=== PATIENT | female | born 1990 | race Caucasian/White ===

== ENCOUNTER 2017-11-04 19:33 | Emergency (ER) | payer OTHER, SELFPAY ==
[2017-11-04 19:47] VITALS: BP 127/87; PULSE 98; O2SAT 95
--- NOTE | 2017-11-04 19:52 | ERPHSYRPT ---
- History of Present Illness Time Seen by Provider: 11/04/17 19:49 Source: patient Exam Limitations: no limitations Patient Subjective Stated Complaint: pt is alert and oriented. pt is ambulatory. pt states that she fell on her wooden porch and scraped her left harley and has a 2cm laceration on her left foot. pedal pulses are equal and strong. laceration is actively bleeding a minimal amound. Triage Nursing Assessment: see above Physician History: 27-year-old white female arrives with complaint of abrasion to her left foot symptoms since just prior to arrival. According to the patient she fell down some stairs she has an abrasion to her left foot, She denies any other complaints, Past medical history is negative. Past surgical history is negative. Patient's immunizations updated last month. Timing/Duration: today Severity: mild Modifying Factors: Improves With: nothing Associated Symptoms: other (abrasion left foot), No nausea, No vomiting, No abdominal pain, No shortness of breath, No heartburn, No diaphoresis, No cough, No chills, No chest pain, No fever, No headaches, No malaise, No rash, No syncope, No seizure, No weakness Allergies/Adverse Reactions: No Known Drug Allergies Allergy (Unverified 12/18/13 15:05) Home Medications: Vits W-Ca,Fe,FA(<1Mg) [] 1 tab PO DAILY 12/18/13 [History] Hx Tetanus, Diphtheria Vaccination/Date Given: Yes Hx Influenza Vaccination/Date Given: No Hx Pneumococcal Vaccination/Date Given: No Immunizations Up to Date: Yes - Review of Systems Constitutional: No Fever, No Chills Eyes: No Symptoms Ears, Nose, & Throat: No Symptoms Respiratory: No Cough, No Dyspnea Cardiac: No Chest Pain, No Edema, No Syncope Abdominal/Gastrointestinal: No Abdominal Pain, No Nausea, No Vomiting, No Diarrhea Genitourinary Symptoms: No Dysuria Musculoskeletal: No Back Pain, No Neck Pain Skin: Other (Abrasion left foot bleeds when she stands up) Neurological: No Dizziness, No Focal Weakness, No Sensory Changes Psychological: No Symptoms Endocrine: No Symptoms All Other Systems: Reviewed and Negative - Past Medical History Pertinent Past Medical History: No Neurological History: Seizures ENT History: No Pertinent History Cardiac History: No Pertinent History Respiratory History: No Pertinent History Endocrine Medical History: No Pertinent History Musculoskeletal History: No Pertinent History GI Medical History: No Pertinent History History: No Pertinent History Psycho-Social History: No Pertinent History Female Reproductive Disorders: No Pertinent History Other Medical History: pediatric seizures. - Past Surgical History Past Surgical History: Yes Neuro Surgical History: No Pertinent History Cardiac: No Pertinent History Respiratory: No Pertinent History Gastrointestinal: No Pertinent History Genitourinary: No Pertinent History Musculoskeletal: No Pertinent History Female Surgical History: No Pertinent History Other Surgical History: TONSILS - Social History Smoking Status: Never smoker Exposure to second hand smoke: No Drug Use: none Patient Lives Alone: No - Female History Hx Now: No - Nursing Vital Signs Nursing Vital Signs: Initial Vital Signs Temperature 97.7 F 11/04/17 19:33 Pulse Rate 98 H 11/04/17 19:33 Respiratory Rate 16 11/04/17 19:33 Blood Pressure 127/87 11/04/17 19:33 O2 Sat by Pulse Oximetry 95 11/04/17 19:33 Pain Scale Pain Intensity 0 - Physical Exam General Appearance: no apparent distress, alert Eye Exam: PERRL/EOMI, eyes nml inspection Ears, Nose, Throat Exam: normal ENT inspection, TMs normal, pharynx normal, moist mucous membranes Neck Exam: normal inspection, non-tender, supple, full range of motion Respiratory Exam: normal breath sounds, lungs clear, No respiratory distress Cardiovascular Exam: regular rate/rhythm, normal heart sounds, normal peripheral pulses Gastrointestinal/Abdomen Exam: soft, normal bowel sounds, No tenderness, No mass Back Exam: normal inspection Extremity Exam: normal inspection, normal range of motion, pelvis stable Neurologic Exam: alert, oriented x 3, cooperative, 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 Will have nurse clean the area and apply bacitracin. 11/04/17 20:27 - Departure Time of Disposition: 20:25 Departure Disposition: Home Clinical Impression: Skin abrasion Condition: Fair Critical Care Time: No Referrals: LARRY CARY FNP [Primary Care Provider] - Additional Instructions: Return home. Bacitracin to area until healed. Ice and elevate and pressure if any further bleeding. Return for acute distress or for severe symptoms.
[2017-11-04] MEDS ORDERED: BACIGUENT PACKET TP ONE (20:26)
[2017-11-04] MEDS ORDERED: BACIGUENT PACKET ONE (20:35)
== END 2017-11-04 21:07 | disposition home or self-care (01) ==
LOC: ED 19:33
DX: S90.812A Abrasion, left foot, initial encounter (principal); W10.9XXA Fall (on) (from) unspecified stairs and steps, initial encounter; Y92.008 Other place in unspecified non-institutional (private) residence as the place of occurrence of the external cause
CPT/HCPCS: 99283; A9270-GY

== ENCOUNTER 2018-08-05 15:45 | Emergency (ER) | payer OTHER ==
--- NOTE | 2018-08-05 16:30 | ERPHSYRPT ---
- History of Present Illness Time Seen by Provider: 08/05/18 16:17 Source: patient Exam Limitations: no limitations Patient Subjective Stated Complaint: states had two molars removed and started on amoxicillin same day. last night had a couple episodes of vomiting and vomited times one today. also having increased swelling to left side of face. states she can feel a blister on left side of mouth. Triage Nursing Assessment: ambulated to room per self. skin w/d, color normal, resp easy. slight swelling noted to left side of face. denies pain Physician History: 28-year-old white female who has a history of seizures as a child last time at 13 years old arrives with complaints of vomiting 3 since yesterday, She states that she has swelling in her left maxillary region, Patient states that she had 2 teeth pulled in the left maxillary area on , August 03, She states that she is tender in the left maxillary area she has no fevers, She does feel like she is not eating well, Past medical history includes pediatrics seizures Past surgical history includes tonsillectomy. Timing/Duration: day(s) (2 days) Severity: moderate Modifying Factors: Improves With: other (patient is on amoxicillin) Associated Symptoms: nausea, vomiting, other (swelling left maxillary area), No abdominal pain, No shortness of breath, No heartburn, No diaphoresis, No cough, No chills, No chest pain, No fever, No headaches, No loss of appetite, No malaise, No rash, No syncope, No seizure, No weakness Allergies/Adverse Reactions: No Known Drug Allergies Allergy (Verified 08/05/18 16:07) Hx Tetanus, Diphtheria Vaccination/Date Given: Yes Hx Influenza Vaccination/Date Given: Yes Hx Pneumococcal Vaccination/Date Given: No - Review of Systems Constitutional: No Fever, No Chills Eyes: No Symptoms Ears, Nose, & Throat: Mouth Pain, Mouth Swelling, No Ear Pain, No Ear Discharge , No Hearing Changes, No Tinnitus, No Nose Pain, No Nose Congestion, No Nose Discharge, No Sinus Drainage, No Epistaxis, No Loose Teeth, No Throat Pain, No Throat Swelling, No Hoarse, No Painful Swallowing, No Snoring, No Stridor Respiratory: No Cough, No Dyspnea Cardiac: No Chest Pain, No Edema, No Syncope Abdominal/Gastrointestinal: No Abdominal Pain, No Nausea, No Vomiting, No Diarrhea Genitourinary Symptoms: No Dysuria Musculoskeletal: No Back Pain, No Neck Pain Skin: No Rash Neurological: No Dizziness, No Focal Weakness, No Sensory Changes Psychological: No Symptoms Endocrine: No Symptoms All Other Systems: Reviewed and Negative - Past Medical History Pertinent Past Medical History: Yes Neurological History: Seizures ENT History: No Pertinent History Cardiac History: No Pertinent History Respiratory History: No Pertinent History Endocrine Medical History: No Pertinent History Musculoskeletal History: No Pertinent History GI Medical History: No Pertinent History History: No Pertinent History Psycho-Social History: No Pertinent History Female Reproductive Disorders: No Pertinent History Other Medical History: pediatric seizures. - Past Surgical History Past Surgical History: Yes Neuro Surgical History: No Pertinent History Cardiac: No Pertinent History Respiratory: No Pertinent History Gastrointestinal: No Pertinent History Genitourinary: No Pertinent History Musculoskeletal: No Pertinent History Female Surgical History: No Pertinent History Other Surgical History: TONSILS - Social History Smoking Status: Never smoker Exposure to second hand smoke: No Drug Use: none Patient Lives Alone: No - Female History Hx Now: No (on period now) - Nursing Vital Signs Nursing Vital Signs: Initial Vital Signs Temperature 97.9 F 08/05/18 16:04 Pulse Rate 94 H 08/05/18 16:04 Respiratory Rate 16 08/05/18 16:04 Blood Pressure 132/82 08/05/18 16:04 O2 Sat by Pulse Oximetry 99 08/05/18 16:04 Pain Scale Pain Intensity 0 - Physical Exam General Appearance: no apparent distress, alert Eye Exam: PERRL/EOMI, eyes nml inspection Ears, Nose, Throat Exam: TMs normal, pharynx normal, moist mucous membranes, other (erythema left maxillary molar area small amount of white tissue adjacent to this, slight edema left maxillary area(external he) airway clear) Neck Exam: normal inspection, non-tender, supple, full range of motion Respiratory Exam: normal breath sounds, lungs clear, No respiratory distress Cardiovascular Exam: regular rate/rhythm, normal heart sounds, normal peripheral pulses, capillary refill <2 sec Gastrointestinal/Abdomen Exam: soft, normal bowel sounds, No tenderness, No mass Back Exam: normal inspection, normal range of motion, No CVA tenderness, No vertebral tenderness Extremity Exam: normal inspection, normal range of motion, pelvis stable Neurologic Exam: alert, oriented x 3, cooperative, 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, normal mood/affect, nml cerebellar function, nml station & gait, sensation nml, No motor deficits Skin Exam: normal color, warm, dry, No rash Lymphatic Exam: No adenopathy SpO2 Interpretation: normal (99%) SpO2: 99 Ordered Tests: Active Orders 24 hr Category Date Time Status IV Insertion STAT Care 08/05/18 16:22 Active CBC W DIFF Stat Lab 08/05/18 16:39 Completed CMP Stat Lab 08/05/18 16:39 Completed HCG QUALITATIVE,SERUM Stat Lab 08/05/18 16:39 Completed UA W/RFX UR CULTURE Stat Lab 08/05/18 16:49 Completed Medication Summary Discontinued Medications Generic Name Dose Route Start Last Admin Trade Name Freq PRN Reason Stop Dose Admin Sodium Chloride 1,000 mls @ 999 mls/hr 08/05/18 17:05 08/05/18 18:19 Sodium Chloride 0.9% 1000 Ml IV 08/05/18 18:05 Infused .Q1H1M STA Infusion Sodium Chloride Confirm 08/05/18 17:06 Sodium Chloride 0.9% 1000 Ml Administered 08/05/18 17:07 Dose 1,000 mls @ ud .ROUTE .STK-MED ONE Ceftriaxone Sodium/Dextrose 1 g in 50 mls @ 100 mls/hr 08/05/18 17:30 17:42 Rocephin 1 Gm-D5w 50 Ml Bag IV 08/05/18 17:59 1 g/hr STAT STA 50 mls/hr Administration Ceftriaxone Sodium/Dextrose Confirm 08/05/18 17:40 Rocephin 1 Gm-D5w 50 Ml Bag Administered 08/05/18 17:41 Dose 1 g in 50 mls @ ud IV .STK-MED ONE Ondansetron HCl 4 mg 08/05/18 17:14 08/05/18 17:16 Zofran 4 Mg/2 Ml Vial IV 08/05/18 17:15 4 mg STAT ONE Administration Ondansetron HCl Confirm 08/05/18 17:15 Zofran 4 Mg/2 Ml Vial Administered 08/05/18 17:16 Dose 4 mg .ROUTE .STK-MED ONE Lab/Rad Data: Laboratory Result Diagrams 08/05/18 16:39 08/05/18 16:39 Laboratory Results 08/05/18 08/05/1808/05/19 Range/Units 16:49 16:39 16:39 WBC (4.0-10.5) K/mm3 RBC (4.1-5.4) M/mm3 Hgb (12.0-16.0) gm/dl Hct (35-47) % MCV (78-100) fl MCH (26-32) pg MCHC (32-36) g/dl RDW (11.5-14.0) % Plt Count (150-450) K/mm3 MPV (6-9.5) fl Gran % (36.0-66.0) % Eos # (Auto) (0-0.5) Absolute Lymphs (auto) (1.0-4.6) Absolute Monos (auto) (0.0-1.3) Lymphocytes % (24.0-44.0) % Monocytes % (0.0-12.0) % Eosinophils % (0.00-5.0) % Basophils % (0.0-0.4) % Absolute Granulocytes (1.4-6.9) Basophils # (0-0.4) Sodium 143 (137-145) mmol/L Potassium 3.8 (3.5-5.1) mmol/L Chloride 106 (98-107) mmol/L Carbon Dioxide 24 (22-30) mmol/L Anion Gap 17.3 H (5-15) MEQ/L BUN 10 (7-17) mg/dL Creatinine 0.61 (0.52-1.04) mg/dL Estimated GFR > 60.0 ML/MIN Glucose 89 (74-106) mg/dL Calcium 10.1 (8.4-10.2) mg/dL Total Bilirubin 0.40 (0.2-1.3) mg/dL AST 26 (14-36) U/L ALT 23 (0-35) U/L Alkaline Phosphatase 76 (38-126) U/L Serum Total Protein 8.5 H (6.3-8.2) g/dL Albumin 4.8 (3.5-5.0) g/dL Serum , Qual NEGATIVE (Negative) Urine Color YELLOW (YELLOW) Urine Appearance SLIGHTLY CLOUDY (CLEAR) Urine pH 5.0 (5-6) Ur Specific [place] 1.016 (1.005-1.025) Urine Protein NEGATIVE (Negative) Urine Ketones TRACE (NEGATIVE) Urine Blood MODERATE (0-5) Rick/ul Urine Nitrite NEGATIVE (NEGATIVE) Urine Bilirubin NEGATIVE (NEGATIVE) Urine Urobilinogen NEGATIVE (0-1) mg/dL Ur Leukocyte Esterase NEGATIVE (NEGATIVE) Urine WBC (Auto) 0-2 (0-5) /HPF Urine RBC (Auto) NONE (0-2) /HPF U Epithel Cells (Auto) RARE (FEW) /HPF Urine Bacteria (Auto) NONE (NEGATIVE) /HPF Urine Mucus (Auto) SLIGHT (NEGATIVE) /HPF Urine Culture Reflexed NO (NO) Urine Glucose NEGATIVE (NEGATIVE) mg/dL 08/05/18 Range/Units 16:39 WBC 5.5 (4.0-10.5) K/mm3 RBC 4.54 (4.1-5.4) M/mm3 Hgb 13.2 (12.0-16.0) gm/dl Hct 39.2 (35-47) % MCV 86.3 (78-100) fl MCH 29.1 (26-32) pg MCHC 33.7 (32-36) g/dl RDW 13.1 (11.5-14.0) % Plt Count 211 (150-450) K/mm3 MPV 11.4 H (6-9.5) fl Gran % 63.4 (36.0-66.0) % Eos # (Auto) 0.03 (0-0.5) Absolute Lymphs (auto) 1.47 (1.0-4.6) Absolute Monos (auto) 0.49 (0.0-1.3) Lymphocytes % 26.8 (24.0-44.0) % Monocytes % 8.9 (0.0-12.0) % Eosinophils % 0.5 (0.00-5.0) % Basophils % 0.4 (0.0-0.4) % Absolute Granulocytes 3.48 (1.4-6.9) Basophils # 0.02 (0-0.4) Sodium (137-145) mmol/L Potassium (3.5-5.1) mmol/L Chloride (98-107) mmol/L Carbon Dioxide (22-30) mmol/L Anion Gap (5-15) MEQ/L BUN (7-17) mg/dL Creatinine (0.52-1.04) mg/dL Estimated GFR ML/MIN Glucose (74-106) mg/dL Calcium (8.4-10.2) mg/dL Total Bilirubin (0.2-1.3) mg/dL AST (14-36) U/L ALT (0-35) U/L Alkaline Phosphatase (38-126) U/L Serum Total Protein (6.3-8.2) g/dL Albumin (3.5-5.0) g/dL Serum , Qual (Negative) Urine Color (YELLOW) Urine Appearance (CLEAR) Urine pH (5-6) Ur Specific [place] (1.005-1.025) Urine Protein (Negative) Urine Ketones (NEGATIVE) Urine Blood (0-5) Rick/ul Urine Nitrite (NEGATIVE) Urine Bilirubin (NEGATIVE) Urine Urobilinogen (0-1) mg/dL Ur Leukocyte Esterase (NEGATIVE) Urine WBC (Auto) (0-5) /HPF Urine RBC (Auto) (0-2) /HPF U Epithel Cells (Auto) (FEW) /HPF Urine Bacteria (Auto) (NEGATIVE) /HPF Urine Mucus (Auto) (NEGATIVE) /HPF Urine Culture Reflexed (NO) Urine Glucose (NEGATIVE) mg/dL - Progress Progress: improved Progress Note: 08/05/18 16:28 This is a 28-year-old white female status post dental extraction on , August 03 she states that she has been having swelling in her left maxillary area she has pain in the area where her teeth have been pulled in the left maxillary molar area she states she vomited 3 times. She is on amoxicillin. She does state that she doesn't feel like she is eating well. Patient's oral mucosa is moist. Will go ahead and obtain CBC CMP hCG and urine. Will give patient IV normal saline. 08/05/18 17:30 Patient's labs essentially normal she does have a slightly increased anion gap. Will give patient a liter of normal saline also Rocephin 1 g IV. She is to continue her antibiotics as prescribed by her dentist. Cold packs to her left maxillary area(external 24-48 hours) Will write for Zofran for nausea. Patient to return home - Departure Departure Disposition: Home Clinical Impression: Facial swelling, Status post tooth extraction Vomiting Qualifiers: Vomiting type: unspecified Vomiting Intractability: non-intractable Nausea presence: with nausea Qualified Code(s): R11.2 - Nausea with vomiting, unspecified Condition: Fair Critical Care Time: No Referrals: JUDITH COSTELLO MD [Primary Care Provider] - Additional Instructions: Return home. Plenty of fluids, clear fluids only 24-48 hours if nausea and vomiting. Continue antibiotics as prescribed by your dentist. Cold packs to maxillary area 24-48 hours (external ) Tylenol every 4 hours as needed for pain. Follow-up with your dentist Zofran as prescribed. Return for acute distress or for severe symptoms. Prescriptions: Ondansetron ODT 4 MG [Zofran Odt 4 mg] 4 mg PO Q6H PRN PRN #10 tab.rapdis PRN Reason: nausea and vomiting
[2018-08-05 16:43] LABS: BASOPHIL % 0.4 % (0.0-0.4); Basophil (Absolute #) 0.02 (0-0.4); Eosinophil % 0.5 % (0.00-5.0); Eosinophil (Absolute #) 0.03 (0-0.5); Granulocyte Absolute (ANC) 3.48 (1.4-6.9); Granulocytes % 63.4 % (36.0-66.0); Hematocrit 39.2 % (35-47); Hemoglobin 13.2 gm/dl (12.0-16.0); Lymphocyte (Absolute #) 1.47 (1.0-4.6); Lymphocytes % 26.8 % (24.0-44.0); Mean Cell Volume 86.3 fl (78-100); Mean Corpuscular Hemoglobin 29.1 pg (26-32); Mean Corpuscular Hgb Concent. 33.7 g/dl (32-36); Mean Platelet Volume 11.4 fl (6-9.5); Monocyte (Absolute #) 0.49 (0.0-1.3); Monocytes % 8.9 % (0.0-12.0); Platelet Count 211 K/mm3 (150-450); Red Blood Count 4.54 M/mm3 (4.1-5.4); Red Cell Distribution Width 13.1 % (11.5-14.0); White Blood Count 5.5 K/mm3 (4.0-10.5)
[2018-08-05 16:52] LABS: ALBUMIN 4.8 g/dL (3.5-5.0); ALKALINE PHOSPHATASE 76 U/L (38-126); ANION GAP 17.3 MEQ/L (5-15); BLOOD UREA NITROGEN 10 mg/dL (7-17); CHLORIDE 106 mmol/L (98-107); Calcium 10.1 mg/dL (8.4-10.2); Carbon Dioxide 24 mmol/L (22-30); Creatinine 1 0.61 mg/dL (0.52-1.04); Glucose 89 mg/dL (74-106); Potassium 3.8 mmol/L (3.5-5.1); SGOT/AST 26 U/L (14-36); SGPT/ALT 23 U/L (0-35); SODIUM 143 mmol/L (137-145); Total Protein 8.5 g/dL (6.3-8.2)
[2018-08-05] MEDS ORDERED: Sodium Chloride 0.9% 1000 ML 1,000 ML IV STA (17:05)
[2018-08-05] MEDS ORDERED: Sodium Chloride 0.9% 1000 ML 1,000 ML ONE (17:06)
[2018-08-05] MEDS ORDERED: Zofran 4 MG/2 ML VIAL IV ONE (17:14)
[2018-08-05] MEDS ORDERED: Zofran 4 MG/2 ML VIAL ONE (17:15)
[2018-08-05 17:21] LABS: Appearance SLIGHTLY CLOUDY (CLEAR); Bilirubin NEGATIVE (NEGATIVE); Blood MODERATE Ery/ul (0-5); Epithelial Cells RARE /HPF (FEW); Glucose NEGATIVE (NEGATIVE); Ketones TRACE (NEGATIVE); Leukocyte Esterase NEGATIVE (NEGATIVE); Mucus SLIGHT /HPF (NEGATIVE); Nitrite NEGATIVE (NEGATIVE); Protein,Urine Dip NEGATIVE (Negative); Specific Gravity 1.016 (1.005-1.025); Urobilinogen NEGATIVE mg/dL (0-1); WBC 0-2 /HPF (0-5)
[2018-08-05] MEDS ORDERED: ROCEPHIN 1 Gm-D5w 50 ml Bag** 1 G/50 ML IVPB IV STA (17:30)
[2018-08-05] MEDS ORDERED: ROCEPHIN 1 Gm-D5w 50 ml Bag** 1 G/50 ML IVPB IV ONE (17:40)
[2018-08-05 17:44] VITALS: BP 114/74
[2018-08-05 18:02] VITALS: PULSE 66
[2018-08-05 19:07] VITALS: O2SAT 99
== END 2018-08-05 18:24 | disposition home or self-care (01) ==
LOC: ED 15:45
DX: R22.0 Localized swelling, mass and lump, head (principal); K08.409 Partial loss of teeth, unspecified cause, unspecified class; R11.2 Nausea with vomiting, unspecified; G40.909 Epilepsy, unspecified, not intractable, without status epilepticus
CPT/HCPCS: 36000; 36415; 80053; 81001; 81025; 85025; 86870; 96360; 96365; 96374; 99284; J0696; J2405

== ENCOUNTER 2021-05-17 18:06 | Emergency (ER) | payer OTHER ==
[2021-05-17] MEDS ORDERED: Pepcid 20 MG VIAL IV ONE (19:33)
[2021-05-17] MEDS ORDERED: MORPHINE SULFATE 4 MG INJ IV ONE (19:33)
[2021-05-17] MEDS ORDERED: Zofran 4 MG/2 ML VIAL IV ONE (19:33)
--- NOTE | 2021-05-17 19:33 | ERPHSYRPT ---
- History of Present Illness Time Seen by Provider: 05/17/21 19:30 Historian: patient, family Exam Limitations: no limitations Patient Subjective Stated Complaint: pt here for right sided rib and abd pain for 2 hours now, she is covid postivie, Triage Nursing Assessment: pt alert, resp easy, face mask in place, skin w/d/p. pt holding right side, Physician History: pt has Covid 3 days and today developed RUQ pain and is tender right abd. Pain with inspiration, which can get her breath. pulse ox still OK. trying to get preganant and has right ovarian cyst known. no Discharge or vag sys or bleeding. Timing/Duration: today Activities at Onset: none Quality: sharpness, throbbing Abdominal Pain Onset Location: RUQ Pain Radiation: RLQ Severity of Pain-Max: moderate Severity of Pain-Current: moderate Associated Symptoms: shortness of breath Previous symptoms: no prior history Allergies/Adverse Reactions: No Known Drug Allergies Allergy (Verified 05/17/21 18:42) Hx Tetanus, Diphtheria Vaccination/Date Given: No Hx Influenza Vaccination/Date Given: No Hx Pneumococcal Vaccination/Date Given: No Immunizations Up to Date: Yes Travel Risk - International Travel Have you traveled outside of the country in past 3 weeks: No - Coronavirus Screening Are you exhibiting any of the following symptoms?: Yes Symptoms: Headaches/Body Aches/Fatigue Close contact with a COVID-19 positive Pt in past 14-21 Days: No - Vaccine Status Have you recieved a Covid-19 vaccination: No - Review of Systems Constitutional: No Fever, No Chills Eyes: No Symptoms Ears, Nose, & Throat: Nose Congestion Respiratory: Dyspnea, No Cough Cardiac: No Chest Pain, No Edema, No Syncope Abdominal/Gastrointestinal: Abdominal Pain, No Nausea, No Vomiting, No Diarrhea Genitourinary Symptoms: No Dysuria Musculoskeletal: No Back Pain, No Neck Pain Skin: No Rash Neurological: No Dizziness, No Focal Weakness, No Sensory Changes Psychological: No Symptoms Endocrine: No Symptoms Hematologic/Lymphatic: No Symptoms Immunological/Allergic: No Symptoms All Other Systems: Reviewed and Negative - Past Medical History Pertinent Past Medical History: Yes Neurological History: Seizures ENT History: No Pertinent History Cardiac History: No Pertinent History Respiratory History: No Pertinent History Endocrine Medical History: No Pertinent History Musculoskeletal History: No Pertinent History GI Medical History: No Pertinent History History: No Pertinent History Psycho-Social History: No Pertinent History Female Reproductive Disorders: Other Other Medical History: cyst - Past Surgical History Past Surgical History: No Neuro Surgical History: No Pertinent History Cardiac: No Pertinent History Respiratory: No Pertinent History Gastrointestinal: No Pertinent History Genitourinary: No Pertinent History Musculoskeletal: No Pertinent History Female Surgical History: No Pertinent History Other Surgical History: TONSILS - Social History Smoking Status: Never smoker Exposure to second hand smoke: No Drug Use: none Patient Lives Alone: No - Female History Hx Last Menstrual Period: last week Hx Now: No - Nursing Vital Signs Nursing Vital Signs: Initial Vital Signs Temperature 97.2 F 05/17/21 18:41 Pulse Rate 90 05/17/21 18:41 Respiratory Rate 18 05/17/21 18:41 Blood Pressure 127/99 05/17/21 18:41 O2 Sat by Pulse Oximetry 99 05/17/21 18:41 Pain Scale Pain Intensity 3 - Physical Exam General Appearance: no apparent distress, alert Eye Exam: PERRL/EOMI, eyes nml inspection Ears, Nose, Throat Exam: normal ENT inspection, pharynx normal, moist mucous membranes Neck Exam: normal inspection, non-tender, supple, full range of motion Respiratory Exam: normal breath sounds, lungs clear, No respiratory distress Cardiovascular Exam: regular rate/rhythm, normal heart sounds Gastrointestinal/Abdomen Exam: soft, No tenderness, No mass Rectal Exam: deferred Back Exam: normal inspection, normal range of motion, No CVA tenderness, No vertebral tenderness Extremity Exam: normal inspection, normal range of motion, pelvis stable Neurologic Exam: alert, oriented x 3, cooperative, normal mood/affect, nml cerebellar function, sensation nml, No motor deficits Skin Exam: normal color, warm, dry SpO2 Interpretation: normal SpO2: 100 O2 Delivery: Room Air - Course Nursing assessment & vital signs reviewed: Yes EKG Interpreted by Me: Sinus Rhythm, NORMAL AXIS, NORMAL INTERVALS, NORMAL QRS, Non-specific ST Changes Ordered Tests: Active Orders 24 hr Category Date Time Status EKG-ER Only STAT Care 05/17/21 19:33 Active IV Insertion STAT Care 05/17/21 19:33 Active ABDOMEN AND PELVIS W CONTRAST [CT] Stat Exams 05/17/21 22:45 Taken CHEST WITH CONTRAST [CT] Stat Exams 05/17/21 21:10 Taken AMYLASE Stat Lab 05/17/21 20:44 Completed CBC W DIFF Stat Lab 05/17/21 20:44 Completed CMP Stat Lab 05/17/21 20:44 Completed CULTURE,URINE Stat Lab 05/17/21 19:37 Received D-DIMER QUANTITATIVE Stat Lab 05/17/21 20:44 Completed HCG QUALITATIVE,SERUM Stat Lab 05/17/21 20:44 Completed LIPASE Stat Lab 05/17/21 20:44 Completed Lactic Acid Stat Lab 05/17/21 21:01 Completed TROPONIN Q3H Lab 05/17/21 20:44 Completed TROPONIN Q3H Lab 05/17/21 23:24 Completed TROPONIN Q3H Lab 05/18/21 01:45 Ordered TROPONIN Q3H Lab 05/18/21 04:45 Ordered TROPONIN Q3H Lab 05/18/21 07:45 Ordered UA W/RFX UR CULTURE Stat Lab 05/17/21 19:37 Completed Medication Summary Generic Name Dose Route Start Last Admin Trade Name Billyq PRN Reason Stop Dose Admin Sodium Chloride 1,000 mls @ 100 mls/hr 05/17/21 19:45 05/17/21 21:01 Sodium Chloride 0.9% 1000 Ml IV 06/16/21 19:44 Not Given .Q10H DYLAN Ceftriaxone Sodium/Dextrose 1 g in 50 mls @ 100 mls/hr 05/18/21 10:00 05/17/21 21:30 Rocephin 1 Gm-D5w 50 Ml Bag IV 05/21/21 09:59 100 mls/hr Q24H10 DYLAN 100 mls/hr Administration Discontinued Medications Generic Name Dose Route Start Last Admin Trade Name [place] PRN Reason Stop Dose Admin Acetaminophen 1,000 mg 05/17/21 21:02 05/17/21 21:21 Acetaminophen 500 Mg Tablet PO 05/17/21 21:03 1,000 mg STAT STA Administration Acetaminophen Confirm 05/17/21 21:19 Acetaminophen 500 Mg Tablet Administered 05/17/21 21:20 Dose 1,000 mg .ROUTE .STK-MED ONE Ceftriaxone Sodium 1,000 mg 05/17/21 21:04 Ceftriaxone Sodium 1000 Mg Inj Vial IM 05/17/21 21:05 STAT ONE Ceftriaxone Sodium Confirm 05/17/21 21:20 Ceftriaxone Sodium 1000 Mg Inj Vial Administered 05/17/21 21:21 Dose 1,000 mg .ROUTE .STK-MED ONE Famotidine 20 mg 05/17/21 19:33 05/17/21 21:01 Famotidine 20 Mg/1 Vial IV 05/17/21 19:34 Not Given STAT ONE Ceftriaxone Sodium/Dextrose 1 g in 50 mls @ 100 mls/hr 05/17/21 20:13 05/17/21 21:03 Rocephin 1 Gm-D5w 50 Ml Bag IV 05/17/21 20:42 Not Given STAT STA Ceftriaxone Sodium/Dextrose Confirm 05/17/21 21:29 Rocephin 1 Gm-D5w 50 Ml Bag Administered 05/17/21 21:30 Dose 1 g in 50 mls @ ud IV .STK-MED ONE Lidocaine HCl Confirm 05/17/21 21:20 Lidocaine Hcl 1% 20 Ml Mdv 20 Ml Ml Administered 05/17/21 21:21 Dose 1 ml .ROUTE .STK-MED ONE Morphine Sulfate 4 mg 05/17/21 19:33 05/17/21 21:00 Morphine Sulfate 4 Mg/Ml Injection IV 05/17/21 19:34 Not Given STAT ONE Ondansetron HCl 4 mg 05/17/21 19:33 05/17/21 21:01 Ondansetron Hcl 4 Mg/2 Ml Vial IV 05/17/21 19:34 Not Given STAT ONE Ondansetron HCl 4 mg 05/17/21 21:02 05/17/21 21:26 Zofran 4 Mg/Udtablet Orally Disintegrating PO 05/17/21 21:03 Not Given STAT ONE Ondansetron HCl Confirm 05/17/21 21:19 Zofran 4 Mg/Udtablet Orally Disintegrating Administered 05/17/21 21:20 Dose 4 mg .ROUTE .STK-MED ONE Lab/Rad Data: Laboratory Result Diagrams 05/17/21 20:44 05/17/21 20:44 Laboratory Results 05/17/21 05/17/21 05/17/21 Range/Units 23:24 21:01 20:44 WBC (4.0-10.5) K/mm3 RBC (4.1-5.4) M/mm3 Hgb (12.0-16.0) gm/dl Hct (35-47) % MCV (78-100) fl MCH (26-32) pg MCHC (32-36) g/dl RDW (11.5-14.0) % Plt Count (150-450) K/mm3 MPV (7.5-11.0) fl Gran % (36.0-66.0) % Eos # (Auto) (0-0.5) Absolute Lymphs (auto) (1.0-4.6) Absolute Monos (auto) (0.0-1.3) Lymphocytes % (24.0-44.0) % Monocytes % (0.0-12.0) % Eosinophils % (0.00-5.0) % Basophils % (0.0-0.4) % Absolute Granulocytes (1.4-6.9) Basophils # (0-0.4) D-Dimer 1381 H* (215-500) ng/mL Sodium (137-145) mmol/L Potassium (3.5-5.1) mmol/L Chloride (98-107) mmol/L Carbon Dioxide (22-30) mmol/L Anion Gap (5-15) MEQ/L BUN (7-17) mg/dL Creatinine (0.52-1.04) mg/dL Estimated GFR ML/MIN Glucose (74-106) mg/dL Lactic Acid 1.7 (0.4-2.0) Calcium (8.4-10.2) mg/dL Total Bilirubin (0.2-1.3) mg/dL AST (14-36) U/L ALT (0-35) U/L Alkaline Phosphatase (38-126) U/L Troponin I < 0.012 (0.000-0.034) ng/mL Serum Total Protein (6.3-8.2) g/dL Albumin (3.5-5.0) g/dL Amylase (30-110) U/L Lipase (23-300) U/L Serum , Qual (Negative) Urine Color (YELLOW) Urine Appearance (CLEAR) Urine pH (5-6) Ur Specific Salome (1.005-1.025) Urine Protein (Negative) Urine Ketones (NEGATIVE) Urine Blood (0-5) Rick/ul Urine Nitrite (NEGATIVE) Urine Bilirubin (NEGATIVE) Urine Urobilinogen (0-1) mg/dL Ur Leukocyte Esterase (NEGATIVE) Urine WBC (Auto) (0-5) /HPF Urine RBC (Auto) (0-2) /HPF U Epithel Cells (Auto) (FEW) /HPF Urine Bacteria (Auto) (NEGATIVE) /HPF Urine Mucus (Auto) (NEGATIVE) /HPF Urine Culture Reflexed (NO) Urine Glucose (NEGATIVE) mg/dL 05/17/21 05/17/21 05/17/21 Range/Units 20:44 20:44 20:44 WBC (4.0-10.5) K/mm3 RBC (4.1-5.4) M/mm3 Hgb (12.0-16.0) gm/dl Hct (35-47) % MCV (78-100) fl MCH (26-32) pg MCHC (32-36) g/dl RDW (11.5-14.0) % Plt Count (150-450) K/mm3 MPV (7.5-11.0) fl Gran % (36.0-66.0) % Eos # (Auto) (0-0.5) Absolute Lymphs (auto) (1.0-4.6) Absolute Monos (auto) (0.0-1.3) Lymphocytes % (24.0-44.0) % Monocytes % (0.0-12.0) % Eosinophils % (0.00-5.0) % Basophils % (0.0-0.4) % Absolute Granulocytes (1.4-6.9) Basophils # (0-0.4) D-Dimer (215-500) ng/mL Sodium 141 (137-145) mmol/L Potassium 3.7 (3.5-5.1) mmol/L Chloride 104 (98-107) mmol/L Carbon Dioxide 24 (22-30) mmol/L Anion Gap 15.9 H (5-15) MEQ/L BUN 13 (7-17) mg/dL Creatinine 0.65 (0.52-1.04) mg/dL Estimated GFR > 60.0 ML/MIN Glucose 145 H (74-106) mg/dL Lactic Acid (0.4-2.0) Calcium 9.9 (8.4-10.2) mg/dL Total Bilirubin 0.50 (0.2-1.3) mg/dL AST 93 H (14-36) U/L ALT 166 H (0-35) U/L Alkaline Phosphatase 107 (38-126) U/L Troponin I < 0.012 (0.000-0.034) ng/mL Serum Total Protein 8.5 H (6.3-8.2) g/dL Albumin 4.7 (3.5-5.0) g/dL Amylase 55 (30-110) U/L Lipase 51 (23-300) U/L Serum , Qual NEGATIVE (Negative) Urine Color (YELLOW) Urine Appearance (CLEAR) Urine pH (5-6) Ur Specific Salome (1.005-1.025) Urine Protein (Negative) Urine Ketones (NEGATIVE) Urine Blood (0-5) Rick/ul Urine Nitrite (NEGATIVE) Urine Bilirubin (NEGATIVE) Urine Urobilinogen (0-1) mg/dL Ur Leukocyte Esterase (NEGATIVE) Urine WBC (Auto) (0-5) /HPF Urine RBC (Auto) (0-2) /HPF U Epithel Cells (Auto) (FEW) /HPF Urine Bacteria (Auto) (NEGATIVE) /HPF Urine Mucus (Auto) (NEGATIVE) /HPF Urine Culture Reflexed (NO) Urine Glucose (NEGATIVE) mg/dL 05/17/21 05/17/21 Range/Units 20:44 19:37 WBC 13.9 H (4.0-10.5) K/mm3 RBC 4.67 (4.1-5.4) M/mm3 Hgb 13.3 (12.0-16.0) gm/dl Hct 39.9 (35-47) % MCV 85.4 (78-100) fl MCH 28.5 (26-32) pg MCHC 33.3 (32-36) g/dl RDW 13.2 (11.5-14.0) % Plt Count 246 (150-450) K/mm3 MPV 11.3 H (7.5-11.0) fl Gran % 89.3 H (36.0-66.0) % Eos # (Auto) 0.01 (0-0.5) Absolute Lymphs (auto) 0.99 L (1.0-4.6) Absolute Monos (auto) 0.47 (0.0-1.3) Lymphocytes % 7.1 L (24.0-44.0) % Monocytes % 3.4 (0.0-12.0) % Eosinophils % 0.1 (0.00-5.0) % Basophils % 0.1 (0.0-0.4) % Absolute Granulocytes 12.43 H (1.4-6.9) Basophils # 0.01 (0-0.4) D-Dimer (215-500) ng/mL Sodium (137-145) mmol/L Potassium (3.5-5.1) mmol/L Chloride (98-107) mmol/L Carbon Dioxide (22-30) mmol/L Anion Gap (5-15) MEQ/L BUN (7-17) mg/dL Creatinine (0.52-1.04) mg/dL Estimated GFR ML/MIN Glucose (74-106) mg/dL Lactic Acid (0.4-2.0) Calcium (8.4-10.2) mg/dL Total Bilirubin (0.2-1.3) mg/dL AST (14-36) U/L ALT (0-35) U/L Alkaline Phosphatase (38-126) U/L Troponin I (0.000-0.034) ng/mL Serum Total Protein (6.3-8.2) g/dL Albumin (3.5-5.0) g/dL Amylase (30-110) U/L Lipase (23-300) U/L Serum , Qual (Negative) Urine Color YELLOW (YELLOW) Urine Appearance CLOUDY (CLEAR) Urine pH 5.0 (5-6) Ur Specific Salome 1.021 (1.005-1.025) Urine Protein NEGATIVE (Negative) Urine Ketones NEGATIVE (NEGATIVE) Urine Blood NEGATIVE (0-5) Rick/ul Urine Nitrite NEGATIVE (NEGATIVE) Urine Bilirubin NEGATIVE (NEGATIVE) Urine Urobilinogen NEGATIVE (0-1) mg/dL Ur Leukocyte Esterase LARGE (NEGATIVE) Urine WBC (Auto) 16-25 (0-5) /HPF Urine RBC (Auto) 6-10 (0-2) /HPF U Epithel Cells (Auto) FEW (FEW) /HPF Urine Bacteria (Auto) FEW (NEGATIVE) /HPF Urine Mucus (Auto) MANY (NEGATIVE) /HPF Urine Culture Reflexed YES (NO) Urine Glucose NEGATIVE (NEGATIVE) mg/dL - Progress Progress: improved, re-examined Progress Note: 05/17/21 22:46 CT abd order did not go through. Reordered and also CT chest after discussion with pt for PE protocol which is a potential complication from covid . This will take some additional time to complete . 05/18/21 01:02 Discussed results with pt and that we have not definitely determined a cause for her pain and that additional conditions including torsion could be intermittent and evolving undetected. she understands and prefers DC with outpt f/u rather than furhter evluation including US in ER or in hospital at thistime and has the capacity to make this choice. Counseled pt/family regarding: lab results, diagnosis, need for follow-up, rad results - Departure Departure Disposition: Home Clinical Impression: Urinary tract infection, Abdominal pain of unknown etiology, Complex cyst of uterine adnexa, Left ovarian cyst Condition: Good Critical Care Time: No Referrals: JUDITH COSTELLO MD [Primary Care Provider] - Follow up/PCP as directed Instructions: Acute Abdomen (Belly Pain), Adult (DC), Urinary Tract Infection, Adult (DC), Ovarian Cyst (DC) Additional Instructions: We have not determined a precise cause for your pain, although there is a cyst on the right near the uterus and ovary and an ovarian cyst on the left for followup with your Dr. These are at risk for twisting ( torsion) which can occur and resolve and reoccur and be difficult to detect, so return meantime if severe pain recurs. There can be unrelated conditions evolving or developing which have not yet been detected , so this is another reason for follow-up with your Dr. We have noted some increased liver enzymes which also should be followed up with your Dr. THere was a urinary tract infection which may not be causing any symptoms but we are treating and this should also be followed up with your Dr. Prescriptions: Cephalexin Mh 500 mg [Keflex 500 mg] 500 mg PO TID 7 Days #21 cap
[2021-05-17] MEDS ORDERED: Sodium Chloride 0.9% 1000 ML 1,000 ML IV SCH (19:45)
[2021-05-17 19:47] LABS: Appearance CLOUDY (CLEAR); Bacteria FEW /HPF (NEGATIVE); Bilirubin NEGATIVE (NEGATIVE); Blood NEGATIVE Ery/ul (0-5); Epithelial Cells FEW /HPF (FEW); Glucose NEGATIVE (NEGATIVE); Ketones NEGATIVE (NEGATIVE); Leukocyte Esterase LARGE (NEGATIVE); Mucus MANY /HPF (NEGATIVE); Nitrite NEGATIVE (NEGATIVE); Protein,Urine Dip NEGATIVE (Negative); Specific Gravity 1.021 (1.005-1.025); Urobilinogen NEGATIVE mg/dL (0-1)
[2021-05-17] MEDS ORDERED: ROCEPHIN 1 Gm-D5w 50 ml Bag** 1 G/50 ML IVPB IV STA (20:13)
[2021-05-17 20:48] LABS: Absolute Neutrophil Ct (ANC) 12.43 (1.4-6.9); Basophil (Absolute #) 0.01 (0-0.4); Eosinophil % 0.1 % (0.00-5.0); Eosinophil (Absolute #) 0.01 (0-0.5); Hematocrit 39.9 % (35-47); Hemoglobin 13.3 gm/dl (12.0-16.0); Lymphocyte (Absolute #) 0.99 (1.0-4.6); Lymphocytes % 7.1 % (24.0-44.0); Mean Cell Volume 85.4 fl (78-100); Mean Corpuscular Hemoglobin 28.5 pg (26-32); Mean Corpuscular Hgb Concent. 33.3 g/dl (32-36); Mean Platelet Volume 11.3 fl (7.5-11.0); Monocyte (Absolute #) 0.47 (0.0-1.3); Monocytes % 3.4 % (0.0-12.0); Neutrophil % 89.3 % (36.0-66.0); Platelet Count 246 K/mm3 (150-450); Red Blood Count 4.67 M/mm3 (4.1-5.4); Red Cell Distribution Width 13.2 % (11.5-14.0); White Blood Count 13.9 K/mm3 (4.0-10.5)
[2021-05-17] MEDS ORDERED: TYLENOL EXTRA STRENGTH 500 MG PO STA (21:02)
[2021-05-17] MEDS ORDERED: Rocephin 1000 MG INJ IM ONE (21:04)
[2021-05-17] MEDS ORDERED: ZOFRAN ODT 4 MG ONE (21:19)
[2021-05-17] MEDS ORDERED: TYLENOL EXTRA STRENGTH 500 MG ONE (21:19)
[2021-05-17 21:20] LABS: ALBUMIN 4.7 g/dL (3.5-5.0); ALKALINE PHOSPHATASE 107 U/L (38-126); AMYLASE 55 U/L (30-110); ANION GAP 15.9 MEQ/L (5-15); BLOOD UREA NITROGEN 13 mg/dL (7-17); CHLORIDE 104 mmol/L (98-107); Calcium 9.9 mg/dL (8.4-10.2); Carbon Dioxide 24 mmol/L (22-30); Creatinine 1 0.65 mg/dL (0.52-1.04); EST GLOMERULAR FILTRATION RATE > 60.0 ML/MIN; Glucose 145 mg/dL (74-106); LIPASE 51 U/L (23-300); Potassium 3.7 mmol/L (3.5-5.1); SGOT/AST 93 U/L (14-36); SGPT/ALT 166 U/L (0-35); SODIUM 141 mmol/L (137-145); Total Protein 8.5 g/dL (6.3-8.2)
[2021-05-17] MEDS ORDERED: XYLOCAINE 1% HCL 20 ML MDV ONE (21:20)
[2021-05-17] MEDS ORDERED: Rocephin 1000 MG INJ ONE (21:20)
[2021-05-17] MEDS: ZOFRAN ODT 4 MG PO ONE ×2 (21:22→21:26)
[2021-05-17] MEDS ORDERED: ROCEPHIN 1 Gm-D5w 50 ml Bag** 1 G/50 ML IVPB IV ONE (21:29)
[2021-05-18 01:07] VITALS: O2SAT 100
[2021-05-18 01:30] VITALS: BP 142/89; PULSE 91
--- NOTE | 2021-05-18 09:23 | XRAY ---
Indication: Right upper quadrant pain and tenderness. Elevated d-dimer. Positive Covid 19. Multiple contiguous axial images obtained through the chest using 80 cc Isovue 370 contrast and PE protocol. Comparison: None There is adequate opacification of the pulmonary arteries to include the lobar and segmental branches. No pulmonary embolus. Heart is not enlarged. Aorta is normal in course and caliber. Small mediastinal and left hilar calcified nodes. No pathologic mediastinal/hilar lymphadenopathy. Lungs inflated with with a few left lung calcified granulomas and minimal bibasilar dependent atelectasis. Bony thorax intact. CT abdomen/pelvis reported separately. Impression: 1. Negative pulmonary embolus. No acute cardiopulmonary abnormalities. 2. Incidental old granulomatous disease. Comment: Preliminary interpretation made by [facility]. No critical discrepancy.
--- NOTE | 2021-05-18 09:27 | XRAY ---
Indication: Right upper quadrant pain and tenderness. Elevated d-dimer. Positive Covid 19. Multiple contiguous axial images obtained through the abdomen and pelvis using 80 cc Isovue 370 contrast and PE protocol. Comparison: None CT chest reported separately. Noncontrasted stomach and bowel loops appear nonobstructed. Normal appendix. Pelvis demonstrates enlarged bilateral ovary cysts. Largest left ovary cyst measures 5.8 cm and largest right cyst measures 5.4 cm. 1.2 cm left mid renal cortical cyst. No free fluid/air. Remaining liver, gallbladder, pancreas, spleen, adrenal glands, kidneys, ureters, bladder, uterus, and aorta appear unremarkable. No pathologic retroperitoneal lymphadenopathy. Osseous structures intact. Impression: 1. Large bilateral ovary cysts better evaluated with pelvic sonogram if clinically warranted. 2. Remaining CT abdomen/pelvis with contrast exam is negative. Comment: Preliminary interpretation made by [facility]. No critical discrepancy.
[2021-05-18] MEDS ORDERED: ROCEPHIN 1 Gm-D5w 50 ml Bag** 1 G/50 ML IVPB IV SCH (10:00)
== END 2021-05-18 01:30 | disposition home or self-care (01) ==
LOC: ED 18:06
DX: N39.0 Urinary tract infection, site not specified (principal); R10.11 Right upper quadrant pain; N83.202 Unspecified ovarian cyst, left side; N83.201 Unspecified ovarian cyst, right side; R06.00 Dyspnea, unspecified; U07.1 COVID-19
CPT/HCPCS: 36000; 36415; 71260; 74177; 80053; 81001; 81025; 82150; 83605; 83690; 84484; 85025; 85379; 87086; 93005; 99284; J0696; Q0162; A9270-GY

== ENCOUNTER 2021-09-15 07:13 | Day surgery (SDC) | payer OTHER ==
[2021-09-15] MEDS ORDERED: Lactated Ringers 1,000 ML IV SCH (07:30)
[2021-09-15] MEDS ORDERED: CEFAZOLIN 2 GM-D5W BAG** 2 GM/50 ML ML IV SCH (07:30)
[2021-09-15] MEDS ORDERED: Lactated Ringers 1,000 ML IV ONE ×2 (07:34→10:41)
[2021-09-15] MEDS ORDERED: CEFAZOLIN 2 GM-D5W BAG** 2 GM/50 ML ML IV ONE (07:35)
[2021-09-15] MEDS ORDERED: DIPRIVAN 200 MG/20 ML IV ONE (09:28)
[2021-09-15] MEDS ORDERED: Zemuron 100 MG/10 ML ONE ×2 (09:28→10:28)
[2021-09-15] MEDS ORDERED: Decadron 4 MG INJ ONE (09:28)
[2021-09-15] MEDS ORDERED: Versed 2 MG/2 ML Injection ONE (09:28)
[2021-09-15] MEDS ORDERED: SUBLIMAZE 100 MCG/2 ML ONE ×2 (09:28→09:56)
[2021-09-15] MEDS ORDERED: Zofran 4 MG/2 ML VIAL ONE ×3 (09:37→09:38)
[2021-09-15] MEDS ORDERED: Xylocaine-Mpf 2% 5 Ml Vial ONE (10:01)
[2021-09-15] MEDS ORDERED: BRIDION 200MG/2ML IV ONE (10:40)
[2021-09-15] MEDS ORDERED: Compazine 10 MG/2 ML ONE (11:04)
[2021-09-15] MEDS ORDERED: Phenergan 25 MG INJ*** 25 MG in Sodium Chloride 0.9% 100 ML IV SCH (12:00)
[2021-09-15 12:13] VITALS: O2SAT 100
[2021-09-15 13:40] VITALS: PULSE 76
[2021-09-15 14:20] LABS: Epithelial Cells RARE /HPF (FEW); Mucus SLIGHT /HPF (NEGATIVE)
[2021-09-15 14:21] LABS: Appearance CLEAR (CLEAR); Bilirubin NEGATIVE (NEGATIVE); Dipstick done @ ? MAIN LAB; Glucose NEGATIVE (NEGATIVE); Ketones NEGATIVE (NEGATIVE); Nitrite NEGATIVE (NEGATIVE); Protein,Urine Dip NEGATIVE (Negative); RBC TRACE-LYSED Ery/ul (0-5); Urobilinogen 0.2 mg/dL (0-1)
[2021-09-15 14:27] VITALS: BP 103/67
--- NOTE | 2021-09-16 09:26 | OP ---
SURGERY DATE/TIME: 09/15/2021 0942 PREOPERATIVE DIAGNOSES: 1) Thickened endometrium. 2) Right ovarian cyst. POSTOPERATIVE DIAGNOSES: 1) Thickened endometrium. 2) Right ovarian chocolate cyst endometrioma. 3) Left ovarian simple cyst. 4) Endometriosis. PROCEDURE: D&C and diagnostic laparoscopy, bilateral ovarian cyst drainage. SURGEON: Daniel Woodard D.O. RAW MATERIAL PLANNER: Lidia Ortiz, surgical services asst. ANESTHESIA: General. ESTIMATED BLOOD LOSS: Minimal. COMPLICATIONS: None. INDICATIONS: The risks, benefits, indications and alternatives of the procedure were reviewed with the patient prior to procedure. The patient understood the risk of infection, bleeding, bowel injury, bladder injury, ureteral injury, uterine perforation, pelvic infection and thromboembolic disorder associated with this surgery and desires to have this surgery as a possible means to alleviate her current medical condition. DESCRIPTION OF PROCEDURE AND FINDINGS: At this point the patient is taken to the operating room, given general sedation, placed in the dorsal lithotomy position, prepped and draped in the usual sterile fashion. A weighted speculum is then placed in the patient's vagina and the anterior lip of the cervix is grasped with a single tooth tenaculum. Endocervical dilators were advanced through the endocervical canal as a means to dilate the cervix and the uterus is sounded to approximately 8 cm. From this point, a curette was then placed into the fundus of the uterus and curettage was performed in all quadrants of the uterus retrieving a mild to moderate of tissue. From this point, a uterine manipulator was then inserted into the endocervical canal to manipulate the uterus. Attention was then turned to the patient's abdomen where a 5 mm skin incision was made in the umbilical fold. A 5 mm trocar and sleeve were advanced under direct visualization where pneumoperitoneum was obtained with 4 liters of CO2 gas. From this point an additional incision was made in the left middle quadrant region where a 5 mm trocar and sleeve were advanced under direct visualization. An incision was made 2 cm above the symphysis pubis where incision was made and a 5 mm trocar was placed under direct visualization. A survey of the patient's pelvis revealed her to have approximately 5 to 6 cm right ovarian cyst and a 5 to 6 cm left ovarian cyst at this point. A small incision was made was made in the right ovary where old blood appeared to be extruding from the incisional site and appeared to be chocolate in nature and appearing to be an endometrioma. Extensive irrigation was made. Stab incision is made in the left ovarian cyst where there appeared to be a simple cyst and hemostasis was obtained. On the anterior cul-de-sac, there were multiple endometriotic, bluish discolorations appearing to be endometriosis as well as the surface of the bladder where there appeared to be thick multiple endometriotic lesions which were bluish discoloration. The ovary on the right appeared to be fixed on the right side. The right fallopian tube appeared to be within normal limits as well as the uterus appeared to be within normal limits. The left ovary again had a simple cyst that was drained and the right ovary had a chocolate appearing cyst appearing to be an endometrioma. From this point a survey of the patient's abdominal region was within normal limits. From this point, all instruments were removed from the abdominal region. The incisions were closed with 4-0 Monocryl suture. The patient was then taken out of the dorsal lithotomy position, was taken out of anesthesia and was then taken to the recovery room in stable condition. All instruments and laps were accounted for x2.
== END 2021-09-15 14:05 | disposition home or self-care (01) ==
LOC: SDC 07:13
PROVIDERS: ATTEND Obstetrics & Gynecology
DX: R93.89 Abnormal findings on diagnostic imaging of other specified body structures (principal); N83.201 Unspecified ovarian cyst, right side; N80.1 Endometriosis of ovary; N83.202 Unspecified ovarian cyst, left side; N80.9 Endometriosis, unspecified
CPT/HCPCS: 81001; 81025; 87086; 93005; J0690; J1100; J2250; J2405; J2704; J3010